=== PATIENT | male | born 1985 | race Caucasian/White ===

== ENCOUNTER 2017-06-19 22:40 | Emergency (ER) | payer OTHER ==
[~2017-06-19 22:40] MED LIST: NAPROXEN; PSEUDOEPHEDRINE
== END 2017-06-20 00:35 | disposition home or self-care (01) ==
LOC: CED 22:40 → CFTX 22:40
DX: T15.02XA Foreign body in cornea, left eye, initial encounter (principal); Z23 Encounter for immunization
CPT/HCPCS: 65220; 90471; 90715; 99283